=== PATIENT | male | born 2005 | race Caucasian/White ===

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

== ENCOUNTER 2024-12-19 14:27 | Outpatient (CLI) | payer OTHER, SELFPAY ==
--- NOTE | 2024-12-19 | ECHO_ITS ---
Patient Info Name: Jared Chaudhari Age: 19 years : 2005 Gender: Male Ht: 71 in Wt: 170 lbs BSA: 1.97 m2 HR: 64 bpm BP: 131 / 72 mmHg Heart Rhythm: Sinus Rhythm Technical Quality: Good Exam Date: 12/19/2024 2:53 PM Exam Location: Echo Lab Patient Status: Outpatient Admit Date: 12/19/2024 Staff Ordering Physician: Miguel AngelGlory PA-C [employer]: Perla Pinedo RDCS Attending Provider: Miguel AngelGlory PA-C Exam Type: CA echo doppler color flow Study Info Indications R55 - Syncope and collapse Complete two-dimensional, color flow and Doppler transthoracic echocardiogram is performed. Summary 1. Complete two-dimensional, color flow and Doppler transthoracic echocardiogram is performed. 2. Left ventricular chamber dimension is normal. 3. Left ventricular systolic function is low normal, estimated at 50-55%. 4. There is no increased left ventricular wall thickness. 5. The left ventricular diastolic function is normal. 6. Right ventricular chamber dimension is moderately enlarged. 7. Right ventricular systolic function is reduced. 8. There is mild mitral valve regurgitation. 9. There is mild tricuspid valve regurgitation. 10. There is mild pulmonic regurgitation. Left Ventricle Left ventricular chamber dimension is normal. Left ventricular systolic function is low normal, estimated at 50-55%. There is no increased left ventricular wall thickness. The left ventricular diastolic function is normal. Right Ventricle Right ventricular chamber dimension is moderately enlarged. Right ventricular systolic function is reduced. Left Atria Left atrial chamber dimension is normal. Right Atria Right atrial chamber dimension is normal. Atrial Septum Intact interatrial septum visualized by color flow imaging. Aortic Valve The aortic valve is probable trileaflet. There is no aortic valve sclerosis. There is no aortic valve stenosis. There is trace aortic valve regurgitation. Pulmonic Valve The pulmonic valve is normal. There is no pulmonic valve stenosis. There is mild pulmonic regurgitation. Mitral Valve The mitral valve has normal leaflets. There is no mitral valve stenosis. There is mild mitral valve regurgitation. Tricuspid Valve The tricuspid valve leaflets are normal. There is no significant tricuspid valve stenosis. There is mild tricuspid valve regurgitation. No pulmonary hypertension, estimated pulmonary arterial systolic pressure is 32 mmHg. Pericardium/Pleural The pericardium appears normal. There is no pericardial effusion. Inferior Vena Cava Dilated inferior vena cava with >50% collapse upon inspiration consistent with elevated right atrial pressure, 15 mmHg. Aorta The aortic root size at the sinus of Valsalva is normal. Left Ventricular Outflow Tract Name Value Normal LVOT 2D LVOT Diameter 2.1 cm LVOT Doppler LVOT Peak Gradient 4 mmHg LVOT Mean Gradient 2 mmHg LVOT VTI 20 cm LVOT VTI/AV VTI Ratio 0.7 LVOT Stroke Volume 66 ml LVOT CO 15.0 l/min LVOT CI 7.6 l/min/m2 Pulmonic Valve Name Value Normal PV Doppler PV Peak Gradient 4 mmHg Mitral Valve Name Value Normal MV Doppler MV Decel [place] 347 cm/s2 MV PHT 77 ms MV Area (PHT) 2.8 cm2 MV Diastolic Function MV E Peak Velocity 93 cm/s MV A Peak Velocity 37 cm/s MV E/A 2.5 MV Decel Time 267 ms MV Annular TDI MV E/e' (Septal) 8.3 MV E/e' (Lateral) 5.1 MV E/e' (Average) 6.7 Tricuspid Valve Name Value Normal TV Regurgitation Doppler TR Peak Velocity 205 cm/s TR Peak Gradient 17 mmHg Estimated PAP/RSVP RA Pressure 15 mmHg PA Systolic Pressure 32 mmHg RV Systolic Pressure 32 mmHg Aorta Name Value Normal Ascending Aorta Ao Root Diameter (MM) 3.2 cm Ao Root Diam Index (MM) 1.6 cm/m2 Aortic Valve Name Value Normal AV Doppler AV Peak Velocity 134 cm/s AV Peak Gradient 7 mmHg AV Mean Gradient 4 mmHg AV VTI 29 cm AV Area (Cont Eq VTI) 2.3 cm2 AV Area (Cont Eq Isrrael) 2.6 cm2 AV Regurgitation 2D LVOT Area 3.4 cm2 Ventricles Name Value Normal LV Dimensions 2D/MM IVS Diastolic Thickness (2D) 0.9 cm LVID Diastole (2D) 4.8 cm LVIW Diastolic Thickness (2D) 0.9 cm LVID Systole (2D) 3.5 cm LVOT Diameter 2.1 cm LV Mass (2D Cubed) 143.60 g LV Mass Index (2D Cubed) 73 g/m2 Relative Wall Thickness (2D) 0.36 LV Fractional Shortening/Ejection Fraction 2D/MM LV Fractional Shortening (2D) 28 % LV EF (2D Teicholz) 54 % LV Diastolic Volume (4C MOD) 137 ml LV EF (4C MOD) 63 % LV Diastolic Volume (2C MOD) 121 ml LV EF (2C MOD) 59 % LV Diastolic Volume (BP MOD) 129 ml LV Diastolic Volume Index (BP MOD) 65 ml/m2 LV Systolic Volume (BP MOD) 52 ml LV Systolic Volume Index (BP MOD) 27 ml/m2 LV EF (BP MOD) 59 % LV Diastolic Length (4C) 8.7 cm LV Systolic Length (4C) 7.6 cm LV Stroke Volume (4C MOD) 86 ml RV Dimensions 2D/MM RVID Diastole (2D) 4.7 cm Atria Name Value Normal LA Dimensions LA Volume (4C A-L) 45 ml LA Volume (BP A-L) 42 ml RA Dimensions RA Area (4C) 13.1 cm2 Report Signatures
--- NOTE | 2024-12-19 | ECG_ITS ---
Test Date: 2024-12-19 15:23:57 Measurements Intervals [place] Rate: 59 P: 48 MI: 130 QRS: 54 QRSD: 134 T: 22 QT: 404 QTc: 403 Interpretive Statements SINUS BRADYCARDIA WITH SINUS ARRHYTHMIA RIGHT BUNDLE BRANCH BLOCK ABNORMAL ECG No previous ECG available for comparison Electronically Signed On 12-19-2024 17:56:31 CDT by Adrian Patel D.O.
--- OUTSIDE RECORDS SUMMARY | 2024-12-19 16:07 | XMS_ITS | Data Portability ---
Author Organization [facility] Address [address] [place] [address] Care Team Providers Care Associate Pathologist Name Role Phone JASON HOYT Primary Care Provider Unavailab le Assessment No assessment recorded. Plan of Treatment Reminders Order Date Submit Date Provider Last Modified By Organization Details Last Modified Time Details Appointments None recorded. Lab TSH + free T4, serum 2024 025 [facility] [facility], [address], [place], [address], 5 09:07:58 CBC w/ auto diff 2024 025 [facility], [address], [place], [address], 5 09:08:07 CMP, serum or plasma 2024 025 [place] [facility], [address], [place], [address], 5 09:08:00 magnesium, serum or plasma 2024 025 [facility], [address], [place], [address], 5 09:08:05 cobalamin and folate panel, serum 2024 025 [place] [facility], [address], [place], [address], 5 09:08:01 ferritin, serum or plasma 2024 025 [facility] [facility], [address], [place], [address], 09:08:06 iron + total iron-ghada ng capacity (TIBC), serum 2024 025 [facility], [address], [place], [address], 09:08:03 lipid panel, serum or plasma 2024 025 [facility], [address], [place], [address], 5 09:07:59 HbA1c (hemoglobi n A1c), blood 2024 [facility], [address], [place], [address], 09:08:04 Referral None recorded. Procedures None recorded. Surgeries None recorded. Imaging US, echocardio gram, transthora cic, complete, w/ color flow 2024 [facility] [address], [address], 15:30:56 electrocar diogram - 12 lead ekg 2024 [facility] [address], [place], [address], 11:01:03 electrocar diogram 2024 025 [email or web address] In-Office Order, Internal Use Only DO Not Attach Compendium DO Not Attach Compendium, Do Not Delete/merge, [id number] 12:05:13 Medication Orders None recorded. Patient TargetsNo targets recorded. Patient InstructionsNo instructions recorded. Reason for Referral None Reported. Results Created Date Observation Date Name Description Value Unit Range Abnormal Flag Note LastModifiedBy Organization Detail LastModifiedTime 12/09/1912/09/2024 TSH+F REE T4 TSH 1.880 uIU/m L 0.450- 4.500 Not Available [facility] ([facility]) [address] [place], [address], 12/09/2024 09:07:58 12/09/19 25 12/09/2024 TSH+F REE T4 T4,free(dire ct) 1.42 NG/dL 0.82-1 .77 Not Available [facility] ([facility]) [address] [place], [address], 12/09/2024 09:07:58 12/09/19 25 12/09/2024 LIPID PANEL WITH LDL/H DL RATIO cholesterol, total 159 mg/dL 100-19 9 Not Available [facility] ([facility]) [address] [place], [address], 12/09/2024 09:07:59 12/09/1912/09/2024 LIPID PANEL WITH LDL/H DL RATIO triglyceride s 50 mg/dL 0-149 Not Available [facility] ([facility]) [address] [place], [address], 12/09/2024 09:07:59 12/09/1912/09/2024 LIPID PANEL WITH LDL/H DL RATIO HDL cholesterol 51 mg/dL >39 Not Available [facility] ([facility]) [address] [place], [address], 12/09/2024 09:07:59 12/09/1912/09/2024 LIPID PANEL WITH LDL/H DL RATIO VLDL cholesterol srinivas 10 mg/dL 5-40 Not Available [facility] ([facility]) [address] [place], [address], 12/09/2024 09:07:59 12/09/19 25 12/09/2024 LIPID PANEL WITH LDL/H DL RATIO LDL chol calc ([facility]) 98 mg/dL 0-99 Not Available [facility] ([facility]) [address] [place], [address], 12/09/2024 09:07:59 12/09/19 25 12/09/2024 LIPID PANEL WITH LDL/H DL RATIO LDL/HDL ratio 1.9 ratio 0.0-3. 6 LDL/H DL Ratio Men Women 1/2 Avg.R isk 1.0 1.5 Avg.R isk 3.6 3.2 2X Avg.R isk 6.2 5.0 3X Avg.R isk 8.0 6.1 Not Available [facility] ([facility]) [address] [place], [address], 12/09/2024 09:07:59 12/09/19 25 12/09/2024 COMP. METAB OLIC PANEL (14) glucose 81 mg/dL 70-99 Not Available [facility] ([facility]) [address] [place], [address], 12/09/2024 09:08:00 12/09/19 25 12/09/2024 COMP. METAB OLIC PANEL (14) BUN 10 mg/dL 6-20 Not Available [facility] ([facility]) [address] [place], [address], 12/09/2024 09:08:00 12/09/19 25 12/09/2024 COMP. METAB OLIC PANEL (14) creatinine 0.82 mg/dL 0.76-1 .27 Not Available [facility] ([facility]) [address] [place], [address], 12/09/2024 09:08:00 12/09/19 25 12/09/2024 COMP. METAB OLIC PANEL (14) eGFR 128 mL/mi n/1.7 3 >59 Not Available [facility] ([facility]) [address] [place], [address], 12/09/2024 09:08:00 12/09/19 25 12/09/2024 COMP. METAB OLIC PANEL (14) BUN/creatini ne ratio 12 9-20 Not Available [facility] ([facility]) [address] [place], [address], 12/09/2024 09:08:00 12/09/19 25 12/09/2024 COMP. METAB OLIC PANEL (14) sodium 138 mmol/ L 134-14 4 Not Available [facility] ([facility]) [address] [place], [address], 12/09/2024 09:08:00 12/09/19 25 12/09/2024 COMP. METAB OLIC PANEL (14) potassium 4.9 mmol/ L 3.5-5. 2 Not Available [facility] ([facility]) [address] [facility], [address], 12/09/2024 09:08:00 12/09/19 25 12/09/2024 COMP. METAB OLIC PANEL (14) chloride 101 mmol/ L 96-106 Not Available [facility] ([facility]) [address] [facility] [place], [address], 12/09/2024 09:08:00 12/09/19 25 12/09/2024 COMP. METAB OLIC PANEL (14) carbon dioxide, total 25 mmol/ L 20- Not Available [facility] ([facility]) [address] [facility] [place], [address], 12/09/2024 09:08:00 12/09/1912/09/2024 COMP. METAB OLIC PANEL (14) calcium 9.6 mg/dL 8.7-10 .2 Not Available [facility] ([facility]) [address] [facility] [place], [address], 12/09/2024 09:08:00 12/09/19 25 12/09/2024 COMP. METAB OLIC PANEL (14) protein, total 7.1 g/dL 6.0-8. 5 Not Available [facility] ([facility]) [address] [facility], [address], 12/09/2024 09:08:00 12/09/19 25 12/09/2024 COMP. METAB OLIC PANEL (14) albumin 5.0 g/dL 4.3-5. 2 Not Available [facility] ([facility]) [address] [facility], [place], [address], 12/09/2024 09:08:00 12/09/19 25 12/09/2024 COMP. METAB OLIC PANEL (14) globulin, total 2.1 g/dL 1.5-4. 5 Not Available [facility] ([facility]) [address] [facility] [place], [address], 12/09/2024 09:08:00 12/09/19 25 12/09/2024 COMP. METAB OLIC PANEL (14) bilirubin, total 0.6 mg/dL 0.0-1. 2 Not Available [facility] ([facility]) [address] [facility], [place], [address], 12/09/2024 09:08:00 12/09/19 25 12/09/2024 COMP. METAB OLIC PANEL (14) alkaline phosphatase 82 IU/L 44-121 Not Available [facility] ([facility]) [address] [facility], [place], [address], 12/09/2024 09:08:00 12/09/19 25 12/09/2024 COMP. METAB OLIC PANEL (14) AST (SGOT) 24 IU/L 0-40 Not Available [facility] ([facility]) [address] [facility], [address], 12/09/2024 09:08:00 12/09/19 25 12/09/2024 COMP. METAB OLIC PANEL (14) ALT (SGPT) 27 IU/L 0-44 Not Available [facility] ([facility]) [address] [place], [address], 12/09/2024 09:08:00 12/09/19 25 12/09/2024 VITAM IN B12 AND FOLAT E vitamin B12 492 pg/mL 232-12 45 Not Available [facility] ([facility]) [address] [place], [address], 12/09/2024 09:08:01 12/09/19 25 12/09/2024 VITAM IN B12 AND FOLAT E folate (folic acid), serum 15.3 NG/mL >3.0 A serum folat e wayne ntrat ion of less than 3.1 ng/mL is consi dered to repre sent clini srinivas defic iency . Not Available [facility] ([facility]) [address] [place], [address], 12/09/2024 09:08:01 12/09/1912/09/2024 IRON AND TIBC iron bind.cap.(TI BC) 328 ug/dL 250-45 0 Not Available [facility] ([facility]) [address] [place], [address], 12/09/2024 09:08:03 12/09/19 25 12/09/2024 IRON AND TIBC UIBC 80 ug/dL 111-34 3 below low normal Not Available [facility] ([facility]) [address] [place], [address], 12/09/2024 09:08:03 12/09/19 25 12/09/2024 IRON AND TIBC iron 248 ug/dL 38-169 above high normal Not Available [facility] ([facility]) [address] [place], [address], 12/09/2024 09:08:03 12/09/19 25 12/09/2024 IRON AND TIBC iron saturation 76 % 15-55 alert high Not Available [facility] ([facility]) [address] [place], [address], 12/09/2024 09:08:03 12/09/1912/09/2024 HEMOG LOBIN A1C hemoglobin A1C 5.3 % 4.8-5. 6 Predi abete s: 5.7 - 6.4 Diabe gordy: >6.4 Glyce milvia contr ol for adult s with diabe gordy: <7.0 Not Available [facility] ([facility]) [address] [facility], [place], [address], 12/09/2024 09:08:04 12/09/1912/09/2024 MAGNE SIUM magnesium 2.5 mg/dL 1.6-2. 3 above high normal Not Available [facility] ([facility]) [address] [place], [address], 12/09/2024 09:08:05 12/09/1912/09/2024 TODD TIN ferritin 172 NG/mL 30-400 Not Available [facility] ([facility]) [address] [place], [address], 12/09/2024 09:08:06 12/09/1912/09/2024 CBC WITH DIFFE RENTI AL/PL ATELE T WBC 4.8 x10e3 /uL 3.4-10 .8 Not Available [facility] ([facility]) [address] [place], [address], 12/09/2024 09:08:07 12/09/1912/09/2024 CBC WITH DIFFE RENTI AL/PL ATELE T RBC 5.48 x10e6 /uL 4.14-5 .80 Not Available [facility] ([facility]) [address] [place], [address], 12/09/2024 09:08:07 12/09/19 25 12/09/2024 CBC WITH DIFFE RENTI AL/PL ATELE T hemoglobin 16.3 g/dL 13.0-1 7.7 Not Available [facility] ([facility]) [address] [place], [address], 12/09/2024 09:08:07 12/09/1912/09/2024 CBC WITH DIFFE RENTI AL/PL ATELE T hematocrit 49.6 % 37.5-5 1.0 Not Available [facility] ([facility]) [address] [place], [address], 12/09/2024 09:08:07 12/09/1912/09/2024 CBC WITH DIFFE RENTI AL/PL ATELE T MCV 91 fL 79-97 Not Available [facility] ([facility]) [address] [place], [address], 12/09/2024 09:08:07 12/09/1912/09/2024 CBC WITH DIFFE RENTI AL/PL ATELE T MCH 29.7 pg 26.6-3 3.0 Not Available [facility] ([facility]) [address] [place], [address], 12/09/2024 09:08:07 12/09/1912/09/2024 CBC WITH DIFFE RENTI AL/PL ATELE T MCHC 32.9 g/dL 31.5-3 5.7 Not Available [facility] ([facility]) [address] [place], [address], 12/09/2024 09:08:07 12/09/1912/09/2024 CBC WITH DIFFE RENTI AL/PL ATELE T RDW 12.6 % 11.6-1 5.4 Not Available [facility] ([facility]) [address] [place], [address], 12/09/2024 09:08:07 12/09/1912/09/2024 CBC WITH DIFFE RENTI AL/PL ATELE T platelets 279 x10e3 /uL 150-45 0 Not Available [facility] ([facility]) [address] [facility], [place], [address], 12/09/2024 09:08:07 12/09/19 25 12/09/2024 CBC WITH DIFFE RENTI AL/PL ATELE T neutrophils 47 % notest ab. Not Available [facility] ([facility]) [address] [facility], [place], [address], 12/09/2024 09:08:07 12/09/19 25 12/09/2024 CBC WITH DIFFE RENTI AL/PL ATELE T lymphs 44 % notest ab. Not Available [facility] ([facility]) [address] [facility], [place], [address], 12/09/2024 09:08:07 12/09/1912/09/2024 CBC WITH DIFFE RENTI AL/PL ATELE T monocytes 8 % notest ab. Not Available [facility] ([facility]) [address] [facility], [place], [address], 12/09/2024 09:08:07 12/09/19 25 12/09/2024 CBC WITH DIFFE RENTI AL/PL ATELE T eos 0 % notest ab. Not Available [facility] ([facility]) [address] [facility], [place], [address], 12/09/2024 09:08:07 12/09/1912/09/2024 CBC WITH DIFFE RENTI AL/PL ATELE T basos 1 % notest ab. Not Available [facility] ([facility]) [address] [facility], [place], [address], 12/09/2024 09:08:07 12/09/19 25 12/09/2024 CBC WITH DIFFE RENTI AL/PL ATELE T neutrophils (absolute) 2.2 x10e3 /uL 1.4-7. 0 Not Available [facility] ([facility]) [address] [facility], [place], [address], 12/09/2024 09:08:07 12/09/19 25 12/09/2024 CBC WITH DIFFE RENTI AL/PL ATELE T lymphs (absolute) 2.1 x10e3 /uL 0.7-3. 1 Not Available [facility] ([facility]) [address] [facility], [place], [address], 12/09/2024 09:08:07 12/09/19 25 12/09/2024 CBC WITH DIFFE RENTI AL/PL ATELE T monocytes(ab solute) 0.4 x10e3 /uL 0.1-0. 9 Not Available [facility] ([facility]) [address] [facility], [place], [address], 12/09/2024 09:08:07 12/09/19 25 12/09/2024 CBC WITH DIFFE RENTI AL/PL ATELE T eos (absolute) 0.0 x10e3 /uL 0.0-0. 4 Not Available [facility] ([facility]) [address] [facility], [place], [address], 12/09/2024 09:08:07 12/09/19 25 12/09/2024 CBC WITH DIFFE RENTI AL/PL ATELE T baso (absolute) 0.0 x10e3 /uL 0.0-0. 2 Not Available [facility] ([facility]) [address] [facility], [place], [address], 12/09/2024 09:08:07 12/09/19 25 12/09/2024 CBC WITH DIFFE RENTI AL/PL ATELE T immature granulocytes 0 % notest ab. Not Available [facility] ([facility]) [address] [facility], [place], [address], 12/09/2024 09:08:07 12/09/19 25 12/09/2024 CBC WITH DIFFE RENTI AL/PL ATELE T immature grans (abs) 0.0 x10e3 /uL 0.0-0. 1 Not Available [facility] ([facility]) [address] [facility], [place], [address], 12/09/2024 09:08:07 12/02/19 25 12/01/2024 elect mehnaz chung am No observ ation record ed. BRENDAN In-Office Order Internal Use Only DO Not Attach Compendium DO Not Attach Compendium, Do Not Delete/merge, [id number] 12/01/2024 14:17:18 Result Notes None recorded. Problems Name Problem SNOMED Code Status Onset Date Resolution Date Notes Provider Name and Address Organization Details Recorded Time Body mass index 20-24 - normal 656579991 Active 025 Amaya Haro MA [facility], [facility] 11/29/2024 08:32:10 Problem Notes None recorded. Procedures Surgical History Date Name Laterality Status Provider Name and Address Organization Details Recorded Time tympanostomy completed KEISHA Mccarty Attn: Accounting[address] [facility], [place], [address], [facility] 11/12/2023 14:51:56 Imaging Results Imaging Date Name Status LastModified by Organization Details LastModified Time 12/01/2024 electrocardiogram completed BRENDAN In-Offi ce Order Internal Use Only DO Not Attach Compendium DO Not Attach Compendium, Do Not Delete/merge, [id number] 12/01/2024 14:17:18 Procedure Notes None recorded. Medical Equipment None Reported. Allergies No known drug allergies Medications Not known to be on any medication Vitals Date Recorded Body height Body mass index (BMI) Body mass index (BMI) Percentile per age and sex Body weight Heart rate Respiratory rate Oxygen saturation Oxygen saturation in Arterial blood by Pulse oximetry Systolic blood pressure Diastolic blood pressure Provider Name and Address Organization Details Last Updated DateTime 4 180.34 cm 26.4 kg/m2 82 % 26548.9 6 g 91 /min 18 /min 96 % 96 % 116 mm[Hg] 75 mm[Hg] Amaya Haro MA [facility] 4 14:36:19 Date Recorded Systolic blood pressure Diastolic blood pressure Provider Name and Address Organization Details Last Updated DateTime 11/12/2023 110 mm[Hg] 72 mm[Hg] KEISHA Mccarty Attn: Accounting, [place], [address], [facility] 11/12/2023 14:51:27 Date Recorded Body height Provider Name an d Address Organization Details Last Updated DateTime 11/29/2024 180.34 cm Gabby Gaitan [facility] 11/30/19 25 08:25:22 Date Recorded Body mass index (BMI) Body weight Oxygen saturation Oxygen saturation in Arterial blood by Pulse oximetry Heart rate Systolic blood pressure Diastolic blood pressure Provider Name and Address Organization Details Last Updated DateTime 24.3 kg/m2 90069.0 7 g 99 % 99 % 60 /min 138 mm[Hg] 82 mm[Hg] Amaya Haro MA [facility] 5 08:33:27 Date Recorded Respiratory rate Systolic blood pressure Diastolic blood pressure Provider Name and Address Organization Details Last Updated DateTime 11/29/2024 16 /min 128 mm[Hg] 80 mm[Hg] KEISHA Mccarty Attn: Accounting, [address] [place], [address], [facility] 11/29/2024 08:48:41 Social History Question Answer Notes LastModified by Organizat ion Details LastModified Time Tobacco Smoking Status Never Smoker Amaya Haro MA null, [facility] 11/12/2023 14:29:18 What Is Your Level Of Alcohol Consumption? Occasional Information not available 11/12/2023 Are You Blind Or Do You Have Difficulty Seeing? No Information not available 11/12/2023 What Is Your Level Of Caffeine Consumption? Moderate 400 Mg Of Preworkou t. Cofee Am Soda Information not available 11/12/2023 In The 14 Days Before Symptom Onset, Have You Had Close Contact With A Laboratory-confir med COVID-19 While That Case Was Ill? No Information not available 11/12/2023 In The 14 Days Before Symptom Onset, Have You Had Close Contact With A Person Who Is Under Investigation For COVID-19 While That Person Was Ill? No Information not available 11/12/2023 Have You Been To An Area Known To Be High Risk For COVID-19? No Information not available 11/12/2023 Are You Currently Employed? Yes Information not available 11/29/2024 Are You Deaf Or Do You Have Serious Difficulty Hearing? No Information not available 11/12/2023 What Type Of Diet Are You Following? REGULAR No Sweets Information not available 11/12/2023 Do You Or Have You Ever Used E-cigarettes Or Vape? Current User Of Electronic Cigarettes Vape [email or web address] Information not available 11/29/2024 Are There Any Guns Present In Your Home? No Information not available 11/12/2023 What Was The Date Of Your Most Recent Tobacco Screening? 11/29/2024 [email or web address] Information not available 11/29/2024 What Is Your Relationship Status? Single [email or web address] Information not available 11/29/2024 Do You Use Your Seat Belt Or Car Seat Routinely? Yes Information not available 11/12/2023 Do You Have Smoke And Carbon Monoxide Detectors In Your Home? Yes Information not available 11/12/2023 Do You Use Any Illicit Or Recreational Drugs? No Information not available 11/12/2023 Do You Use Sunscreen Routinely? Yes [email or web address] Information not available 11/29/2024 Has Tobacco Cessation Counseling Been Provided? Yes Information not available 11/12/2023 On What Date Was Tobacco Cessation Counseling Provided? 11/29/2024 [email or web address] Information not available 11/29/2024 Do You Or Have You Ever Used Any Other Forms Of Tobacco Or Nicotine? Yes Information not available 11/12/2023 Sex: Male Functional Status Question Answer Note LastModified by Organizat ion Details LastModified Time Are you able to care for yourself? Yes Information not available 11/12/2023 What is your exercise level? Heavy 6 days a week Information not available 11/12/2023 Mental Status None recorded. Family History Relationship Description Onset Age of this Age Resolved Age Notes LastModified by Organization Details LastModified Time Father Dementia [email or web address] Not availabl e 11/12/2023 14:28:51 Medical History Condition Response Coronary Artery Disease N Other N Atrial Fibrillation N High Blood Pressure N Kidney or Bladder Problems N Thyroid Problems N GI Problems N Depression N COPD N Blood Clots N Skin Problems N Anemia N Heart Attack (NV) N Anxiety Disorder N Diabetes N Muscle, Joint, or Bone Problems N Seizures/Epilepsy N Acid Reflux (GERD) N Cancer N Stroke N Asthma N Allergies N High Cholesterol N Hepatitis N Liver Disease N Headaches N Osteoporosis N Heart Failure N Past Encounters Encounter ID Performer Location Encounter Start Date Encounter Closed Date Diagnosis/Indication Diagnosis SNOMED-CT Code Diagnosis ICD10 Code Diagnosis Note [id number] KEISHA Mccarty [facility] [address] [place] [address] 11/12/2023 14:28:29 11/29/2023 15:44:29 Adult health examination 262838772 Z00.00 annual wellness completed. labs are not required or due at this time. [id number] [facility] [address] [place] [address] 11/29/2024 08:20:20 11/29/2024 10:09:17 Body mass index 20-24 - normal 138374146 Z68.24 BMI is 24.3 Dizziness 793526487 R42 Check full diagnostic lab panel for dizziness recently with high blood pressure episode reported Syncope 907407089 R55 For near syncope we will order a complete echo with Doppler. We will also order a complete 12 lead EKG to be completed at [facility]. EKG completed in the office today does show some slow rhythm with a rate of 55 and a little moderate intraventr icular conduction delay. Elevated blood-pressure reading without diagnosis of hypertension 468019807 R03.0 Previous elevation at home on his blood pressure is not replicated in the office. He is 128/80 and quite stable. Diabetes m ellitus screening 710453986 Z13.1 Routine diabetes screening ordered Cholesterol screening 27 3801472 Z13.220 Fasting lipid panel ordered Thyroid di sorder screening 838062665 Z13.29 Routine thyroid function testing ordered Electrocar diogram abnormal 742582156 R94.31 EKG completed in the office today does show some slow rhythm with a rate of 55 and a little moderate intraventr icular conduction delay. Health Concerns Section Related Observation LastModified by Organization Detai ls LastModified Time None Recorded Concern Status LastModified by Organization Details LastModified Time None Recorded Advance Directives Directive None Recorded Payers Encounter Date Sequence Insurance Name Policy Number Policy Claros Covered Member ID Claros Member ID Guarantor Name 11/12/2023 1 [facility] ([facility] [id number] Thomas Chaudhari [id number] Jared Chaudhari 11/29/2024 1 [facility] (O) [id number] Thomas Chaudhari [id number] Jared Chaudhari Notes Date Note Type Note Provider Name and Address Organization Details Recorded Time 11/12/2023 text/html Generic HPI TemplateReported bypatient.Notes:Pt here to re-establish and have his annual wellness. he is doing well with no complaints. KEISHA Mccarty Attn: Accounting[address] [place], [address], [facility] 11/21/2023 23:54:34 11/29/2024 text/html Patient is here for blood pressure evaluation. He states that he had a wrist cuff being used and his pressure was in the low 200 systolic over 100 diastolic. He did have some dizziness but he had no chest pain or shortness of breath. Patient denies that there was any substances used either prescriptive or illicit. He does use pre workout routinely for his exercise regimen which does have some caffeine but nothing has changed. He has not had any increase in stress. Patient routinely exercises and follows a healthy diet. He is not sure why his blood pressure was so high and why he was dizzy. He did almost feel a little bit like he could pass out. He had just been watching TV with a friend prior to all of the symptoms. KEISHA Mccarty Attn: Accounting,[address] [place], [address], [facility] 12/01/2024 12:05:33
== END 2024-12-19 14:28 | disposition home or self-care (01) ==
PROVIDERS: PCP Physician Assistant; Visit Provider Physician Assistant
DX: R55 Syncope and collapse (principal); R94.31 Abnormal electrocardiogram [ECG] [EKG]; I45.10 Unspecified right bundle-branch block; I08.1 Rheumatic disorders of both mitral and tricuspid valves; I37.1 Nonrheumatic pulmonary valve insufficiency
CPT/HCPCS: 93005; 93306